=== PATIENT | female | born 1975 | race Caucasian/White ===

== ENCOUNTER → 2017-03-03 | Outpatient (CLI) | payer OTHER ==
[~2017-03-03] MED LIST: CLARITIN 1010 MG/TAB PO; COLACE 100100 MG/CAP PO; FERATE27 MG; IRON PO; METHERGINE0.2 MG/TAB PO; MOTRIN 800800 MG/TAB PO; NO HOME MEDS; NORCO 325 MG-51 TAB PO; PERCOCET 325 MG1 TA2 PO
== END ==
LOC: COL.RAD 14:05
DX: S43.491A Other sprain of right shoulder joint, initial encounter (principal)
CPT/HCPCS: A9585; Q9967

== ENCOUNTER → 2020-05-03 | Outpatient (CLI) | payer OTHER | LOC: MC.RAD 08:22 | DX: Z12.31 Encounter for screening mammogram for malignant neoplasm of breast (principal); Z90.13 Acquired absence of bilateral breasts and nipples ==

== ENCOUNTER 2023-06-16 09:15 | Outpatient (RCR) | payer OTHER | END 2023-06-26 | disposition home or self-care (01) | LOC: PT.GENESIS | DX: M54.50 Low back pain, unspecified (principal); M25.562 Pain in left knee ==

== ENCOUNTER 2023-07-14 09:15 | Outpatient (RCR) | payer OTHER | END 2023-07-25 15:01 | disposition home or self-care (01) | LOC: PT.GENESIS 09:15 | DX: M54.50 Low back pain, unspecified (principal); M25.562 Pain in left knee; M26.602 Left temporomandibular joint disorder, unspecified ==

== ENCOUNTER → 2024-07-21 | Outpatient (CLI) | payer OTHER | LOC: MC.RAD 07:58 | DX: Z12.31 Encounter for screening mammogram for malignant neoplasm of breast (principal) ==